=== PATIENT | male | born 1950 | race African-American/Black ===

== ENCOUNTER 2021-08-20 17:34 | Emergency (ER) | payer MEDICARE ==
[2021-08-20 18:13] LABS: BASOPHIL 0.6 % (0-2); HCT 43.6 % (42.0-52.0); HGB 14.4 g/dl (13.2-18.0); LYMPHOCYTE 35.9 % (15-48); MCH 29.4 pg (25.0-31.0); MONOCYTE 9.1 % (0-12); NEUTROPHIL 53.2 % (41-80); NRBC 0; PLT 178 K/uL (150-400); RDW 12.7 % (11.5-14.0); WBC 4.9 K/uL (4.0-10.5)
[2021-08-20 18:35] LABS: BUN/CREAT RATIO (CALC) 15.1 RATIO; CREATININE 1.19 mg/dL (0.67-1.17); POTASSIUM 3.4 mmol/L (3.5-5.1)
[2021-08-20 19:46] LABS: CORONAVIRUS 2019 SARS-COV-2 NEGATIVE (NEGATIVE); INFLUENZA A NAA NEGATIVE (NEGATIVE)
[2021-08-20] MEDS ORDERED: VENTOLIN HFA IN18 GM INH (20:02)
[2021-08-20] MEDS ORDERED: AUGMENTIN 875-1 EACH PO (20:02)
[2021-08-20] MEDS ORDERED: MEDROL 4MG DOSEP4 MG PO (20:02)
== END 2021-08-20 20:23 | disposition home or self-care (01) ==
LOC: FER 17:34
PROVIDERS: Nurse Practitioner Family
DX: J06.9 Acute upper respiratory infection, unspecified (principal); I10 Essential (primary) hypertension; Z20.822 Contact with and (suspected) exposure to COVID-19
CPT/HCPCS: 36415; 71045; 80048; 85025; 85379; J1100; U0002

== ENCOUNTER 2021-12-09 18:02 | Emergency (ER) | payer MEDICARE ==
[~2021-12-09 18:02] MED LIST: AUGMENTIN 875-1 EACH PO; MEDROL 4MG DOSEP4 MG PO; VENTOLIN HFA IN18 GM INH
== END 2021-12-09 19:59 | disposition home or self-care (01) ==
LOC: FER 18:02
DX: K94.23 Gastrostomy malfunction (principal); I10 Essential (primary) hypertension; Z79.899 Other long term (current) drug therapy
CPT/HCPCS: 99282